=== PATIENT | male | born 1960 | race Caucasian/White ===

== ENCOUNTER 2018-05-23 07:52 | Emergency (ER) | payer MEDICARE ==
[2018-05-23 07:59] VITALS: BP 128/97
--- NOTE | 2018-05-23 08:26 | ED ---
Back Pain - HPI Summary HPI Summary: Patient is a 57-year-old male with a PMH of [place] 10 years ago now on plavix presenting to the with 2 week complaint of right sided mid back pain radiating to the right lateral chest wall. Denies any known injuries or falls. He states he feels that it's a rib pain. Denies any SOB or chest pain. Denies any shortness of breath. Continues to eat and drink okay. Denies any other back pain or urinary symptoms. Has been taking muscle relaxers without much relief. Has not been using ibuprofen or Tylenol. Symptoms are worse with direct pressure and alleviated with nothing. - History of Current Complaint Chief Complaint: EDBackInjuryPain Stated Complaint: POSSIBLE RIB INJURY Time Seen by Provider: 05/23/18 08:12 Hx Obtained From: Patient Onset/Duration: Sudden Onset Onset/Duration: Started Weeks Ago Timing: Constant Back Pain Location: Is Discrete @ - right sided upper back radiating to the right ribs Severity Initially: Moderate Severity Currently: Moderate Pain Intensity: 6 Pain Scale Used: 0-10 Numeric Character: Aching Aggravating Symptom(s): Movement, Lifting, Other - palpation Alleviating Symptom(s): Rest Associated Signs And Symptoms: Negative: Swelling, Redness, Bruising, Weakness, Numbness - Risk Factors AAA Risk Factors: Negative TAD Risk Factors: Negative Cauda Equina Risk Factors: Negative Epidural Abscess Risk Factors: Negative - Allergies/Home Medications Allergies/Adverse Reactions: Allergies Allergy/AdvReac Type Severity Reaction Status Date / Time No Known Allergies Allergy Verified 05/27/16 13:01 PMH/Surg Hx/FS Hx/Imm Hx Previously Healthy: Yes Respiratory History: Reports: Other Respiratory Problems/Disorders - bronchitis Neurological History: Reports: Other Neuro Impairments/Disorders - MR - Immunization History Hx Pertussis Vaccination: No Immunizations Up to Date: Unable to Obtain/Confirm Infectious Disease History: No Infectious Disease History: Denies: Traveled Outside the [place] in Last 30 Days - Family History Known Family History: Positive: Diabetes - Social History Occupation: Employed Part-time Lives: Alone Alcohol Use: Daily Alcohol Amount: 2-3 beers per day Hx Substance Use: No Substance Use Type: Reports: None Hx Tobacco Use: No Smoking Status (MU): Never Smoked Tobacco Review of Systems Constitutional: Negative Negative: Fever, Chills, Fatigue Negative: Palpitations, Chest Pain Negative: Shortness Of Breath, Cough Genitourinary: Negative Positive: no symptoms reported, see HPI Positive: Arthralgia - right sided back pain radiating to the R ribs Skin: Negative, Other - no rash or vesicles are visualized Neurological: Negative All Other Systems Reviewed And Are Negative: Yes Physical Exam Triage Information Reviewed: Yes Vital Signs On Initial Exam: Initial Vitals Temp Pulse Resp BP Pulse Ox 98.2 F 87 18 128/97 96 05/23/18 07:56 05/23/18 07:56 05/23/18 07:56 05/23/18 07:56 05/23/18 07:56 Vital Signs Reviewed: Yes Appearance: Positive: Well-Appearing, Well-Nourished Skin: Positive: Warm, Skin Color Reflects Adequate Perfusion, Other - no vesicles or rash noted Head/Face: Positive: Normal Head/Face Inspection Eyes: Positive: EOMI, DILAN, Conjunctiva Clear Neck: Positive: Supple, No Lymphadenopathy Respiratory/Lung Sounds: Positive: Clear to Auscultation, Breath Sounds Present Cardiovascular: Positive: RRR, Pulses are Symmetrical in both Upper and Lower Extremities Musculoskeletal: Positive: Pain @ - right mid back pain radiating to the R lateral chest wall - reproducible Neurological: Positive: Sensory/Motor Intact, Alert, Oriented to Person Place, Time, Speech Normal Psychiatric: Positive: Normal, Affect/Mood Appropriate AVPU Assessment: Alert Diagnostics - Vital Signs Vital Signs Temp Pulse Resp BP Pulse Ox 05/23/18 07:56 98.2 F 87 18 128/97 96 - Laboratory Lab Statement: Any lab studies that have been ordered have been reviewed, and results considered in the medical decision making process. Back Pain Course/Dx - Course Course Of Treatment: Patient is evaluated for right-sided back pain radiating to the right lateral chest wall over rib cage. X-ray obtained of the right rib series as well as PA lateral views of the chest. This does not appear to be cardiac as patient denies any SOB, chest pain, pain is reproducible on physical examination and symptoms present 2 weeks. Linear pain from back to chest area over dermatome pattern. Possible herpetic zoster virus with delayed vesicular reaction. Patient is cautioned regarding vesicular lesions and will need to be re-seen if these develop. No vesicles seen, Lidoderm patch applied. He will follow up with his physician if symptoms fail to improve. - Diagnoses Differential Diagnosis/HQI/PQRI: Positive: Strain, Sprain Provider Diagnoses: Rib pain on right side Discharge - Sign-Out/Discharge Documenting (check all that apply): Discharge/Admit/Transfer - Discharge Plan Condition: Stable Disposition: HOME Patient Education Materials: Muscle Strain (ED) Referrals: Taylor Cabrera MS [Nurse Practitioner] - Additional Instructions: Advil 600mg three times daily Moist heat to the area If you develop worsening pain or pain continues - please see your PCP If you develop vesicles/rash in the area - please go see your PCP or come to the ED - Billing Disposition and Condition Condition: STABLE Disposition: Home
--- NOTE | 2018-05-23 08:44 | RAD ---
INDICATION: Right-sided chest pain COMPARISON: None TECHNIQUE: Multiple views of the ribs were obtained. FINDINGS: Bones: There is no evidence of acute rib fracture. LUNGS: The lungs are clear. There is no pneumothorax. Pleural spaces: There is no evidence of hemothorax. Other: None IMPRESSION: NO ACUTE RIB FRACTURE. LUNGS CLEAR.
[2018-05-23] MEDS ORDERED: Lidocaine PATCH 5%* 1 PATCH TRANSDERM SCH (09:00)
[2018-05-23] MEDS ORDERED: Lidocaine Patch REMOVE* 1 NOTE MISC SCH (21:00)
== END 2018-05-23 09:05 | disposition home or self-care (01) ==
LOC: ED 07:52
DX: R07.81 Pleurodynia (principal); I25.2 Old myocardial infarction; Z79.02 Long term (current) use of antithrombotics/antiplatelets; F79 Unspecified intellectual disabilities
CPT/HCPCS: 99282; A9270-GY

== ENCOUNTER 2019-01-04 11:14 | Emergency (ER) | payer MEDICARE ==
[2019-01-04] MEDS ORDERED: oxyCODONE/Acetamin 5/325 MG* TAB PO ONE (11:47)
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
[2019-01-04 12:58] VITALS: BP 125/79
== END 2019-01-04 12:57 | disposition home or self-care (01) ==
LOC: ED 11:14
DX: M25.562 Pain in left knee (principal); M25.462 Effusion, left knee; E11.9 Type 2 diabetes mellitus without complications; I10 Essential (primary) hypertension; K21.9 Gastro-esophageal reflux disease without esophagitis; F41.9 Anxiety disorder, unspecified
CPT/HCPCS: 99282; A9270-GY

== ENCOUNTER 2019-03-21 08:53 | Emergency (ER) | payer MEDICARE ==
[2019-03-21] MEDS ORDERED: Ibuprofen TAB* 600 MG PO ONE (09:15)
[2019-03-21] MEDS ORDERED: Acetaminophen TAB* 325 MG PO ONE (09:16)
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
[2019-03-21 10:43] VITALS: BP 144/92
== END 2019-03-21 10:41 | disposition home or self-care (01) ==
LOC: ED 08:53
DX: S22.32XA Fracture of one rib, left side, initial encounter for closed fracture (principal); W01.190A Fall on same level from slipping, tripping and stumbling with subsequent striking against furniture, initial encounter; I10 Essential (primary) hypertension; E11.9 Type 2 diabetes mellitus without complications; K21.9 Gastro-esophageal reflux disease without esophagitis; F41.9 Anxiety disorder, unspecified; Z79.84 Long term (current) use of oral hypoglycemic drugs; Z79.899 Other long term (current) drug therapy
CPT/HCPCS: 99282; A9270-GY

== ENCOUNTER 2020-01-05 11:22 | Emergency (ER) | payer MEDICARE ==
[2020-01-05] MEDS ORDERED: NS 0.9% 1000 ML** 1,000 ML IV ONE (11:47)
[2020-01-05] MEDS ORDERED: methylPREDNISolone 125 MG* 2 ML VIAL IV ONE (11:47)
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
[2020-01-05 12:03] LABS: ABS Eosinophils 0.1 10^3/ul (0-0.6); ABS Lymphocytes 0.7 10^3/ul (1.0-4.8); ABS Monocytes 0.9 10^3/ul (0-0.8); ABS Neutrophils 6.4 10^3/ul (1.5-7.7); Eosinophil % 0.8 %; Hematocrit 32 % (42-52); Hemoglobin 10.9 g/dL (14.0-18.0); Lymphocyte % 9.1 %; Mean Corpuscular HGB Conc 34 g/dL (31-36); Mean Corpuscular Hemoglobin 27 pg (27-31); Mean Corpuscular Volume 79 fL (80-94); Mean Platelet Volume 7.9 fL (7.4-10.4); Platelet Count 134 10^3/uL (150-450); Red Cell Distribution Width 15 % (10-15); White Blood Count 8.1 10^3/uL (3.5-10.8)
[2020-01-05 12:20] LABS: Albumin 3.5 g/dL (3.2-5.2); Albumin/Globulin Ratio 1.4 (1-3); BUN/Creatinine Ratio 9.2 (8-20); C Reactive Protein 41.27 mg/L (<8.01); Calcium 8.4 mg/dL (8.6-10.3); EGFR African American 126.6 (>60); EGFR Non-African American 104.6 (>60); Globulin 2.5 g/dL (2-4); Potassium 3.8 mmol/L (3.5-5.0); Total Bilirubin 0.5 mg/dL (0.2-1.0); Uric Acid 3.7 mg/dL (4.4-7.6)
[2020-01-05 13:27] LABS: Erythrocyte Sed Rate 30 mm/Hr (0-19)
[2020-01-05 14:12] VITALS: BP 149/90
== END 2020-01-05 14:09 | disposition home or self-care (01) ==
LOC: ED 11:22
DX: M10.9 Gout, unspecified (principal); R21 Rash and other nonspecific skin eruption; E11.9 Type 2 diabetes mellitus without complications; Z79.84 Long term (current) use of oral hypoglycemic drugs; I10 Essential (primary) hypertension; I25.2 Old myocardial infarction; K21.9 Gastro-esophageal reflux disease without esophagitis; F41.9 Anxiety disorder, unspecified; R51 Headache
CPT/HCPCS: 36415; 80053; 84550; 85025; 85652; 86140; 96361; 96374; 99283; J2930

== ENCOUNTER 2023-04-25 09:09 | Observation (INO) ==
[2023-04-25 09:31] LABS: Activated Partial Thrombo Time 29.7 seconds (26.0-38.0); INR 1.06 (0.88-1.18)
[2023-04-25 09:43] LABS: Albumin 4.3 g/dL (3.2-5.2); Calcium 9.1 mg/dL (8.6-10.3); Creatinine, Serum 0.76 mg/dL (0.67-1.17); Globulin 2.2 g/dL (2-4); HDL Cholesterol 30.1 mg/dL; Potassium 3.7 mmol/L (3.5-5.0); Total Bilirubin 0.8 mg/dL (0.2-1.0); Total Protein 6.5 g/dL (6.4-8.9)
[2023-04-25 09:51] LABS: Urine Appearance Clear; Urine Bilirubin Negative (Negative); Urine Blood Negative (Negative); Urine Color Straw; Urine Glucose 2+(150 mg/dL) (Negative); Urine Ketones Trace (Negative); Urine Nitrite Negative (Negative); Urine Protein Negative (Negative); Urine Specific Gravity 1.031 (1.002-1.030); Urine Urobilinogen Negative (Negative)
[2023-04-25 10:01] LABS: ABS Basophils 0.1 10^3/uL (0.0-0.1); ABS Eosinophils 0.2 10^3/uL (0.0-0.5); ABS Lymphocytes 1.3 10^3/uL (1.0-4.8); ABS Monocytes 0.7 10^3/uL (0.0-1.1); ABS Nucleated RBC 0.01 10^3/ul; Eosinophil % 2.1 %; Hematocrit 45.3 % (38-53); Hemoglobin 16.2 g/dL (13.2-16.3); Mean Corpuscular Hemoglobin 32.8 pg (27-33); Mean Corpuscular Hgb Conc 35.7 g/dL (31-36); Mean Corpuscular Volume 91.9 fL (80-97); Mean Platelet Volume 7.5 fL (7.5-11.2); Nucleated Red Blood Cells % 0.2 /100 WBC (0.0-0.4); Platelet Count 152 10^3/uL (150-450); Red Blood Count 4.93 10^6/uL (4.06-5.63); Red Cell Distribution Width 13.3 % (12-17); White Blood Count 7.3 10^3/uL (3.6-10.2)
[2023-04-25] MEDS ORDERED: Aspirin EC 325 mg TAB.EC PO ONE (10:06)
[2023-04-25] MEDS ORDERED: Ondansetron 4 mg VIAL 2 MG/ML 2 ml VIAL IV PRN (10:17)
[2023-04-25] MEDS ORDERED: Lorazepam PYXIS KEY PRN (10:20)
[2023-04-25] MEDS ORDERED: MELATONIN PYRIDOXINE HCL PO PRN (10:45)
[2023-04-25] MEDS ORDERED: Psyllium PAK PO PRN (10:45)
[2023-04-25] MEDS ORDERED: CMCS: LoraTADine 10 mg TAB (NF) PO PRN (10:45)
[2023-04-25] MEDS ORDERED: LORazepam 2 mg VIAL 1 ml IV PUSH SCH (11:00)
[2023-04-25 12:39] LABS: TSH Ultra Thyroid Stim Horm 3.7 mcIU/mL (0.34-5.60)
[2023-04-25] MEDS ORDERED: Thiamine 100 MG/ML 2 ml VIAL 500 MG in NS 0.9% 250 ml 250 ML IV SCH (14:00)
[2023-04-25] MEDS ORDERED: Dextrose 50% Syringe 50 ml 25 GM/50 ML SYRINGE IV PUSH PRN (14:27)
[2023-04-25] MEDS: Enoxaparin 40 MG/0.4 ML SYR SUBCUT SCH (15:20)
[2023-04-25] MEDS: Thiamine 100 MG/ML 2 ml VIAL 250 MG in NS 0.9% 100 ml BAG 100 ML IV SCH (15:20)
[2023-04-25] MEDS: Calcium Citrate 200 mg TAB PO SCH (21:15)
[2023-04-26 07:05] LABS: Creatinine, Serum 0.66 mg/dL (0.67-1.17); Magnesium 1.5 mg/dL (1.9-2.7); Potassium 3.4 mmol/L (3.5-5.0); eGFR CKD-EPI 105.4 (>60)
[2023-04-26 07:47] LABS: ABS Basophils 0.1 10^3/uL (0.0-0.1); ABS Eosinophils 0.2 10^3/uL (0.0-0.5); ABS Lymphocytes 1.5 10^3/uL (1.0-4.8); ABS Monocytes 0.7 10^3/uL (0.0-1.1); ABS Neutrophils 4.7 10^3/uL (1.5-7.6); Eosinophil % 2.4 %; Hematocrit 40.9 % (38-53); Hemoglobin 14.9 g/dL (13.2-16.3); Lymphocyte % 20.5 %; Mean Corpuscular Hemoglobin 33.1 pg (27-33); Mean Corpuscular Hgb Conc 36.3 g/dL (31-36); Mean Corpuscular Volume 91.1 fL (80-97); Mean Platelet Volume 7.5 fL (7.5-11.2); Platelet Count 142 10^3/uL (150-450); Red Blood Count 4.49 10^6/uL (4.06-5.63); Red Cell Distribution Width 13.4 % (12-17); White Blood Count 6.6 10^3/uL (3.6-10.2)
[2023-04-26] MEDS: Calcium Citrate 200 mg TAB PO SCH (08:19)
[2023-04-26] MEDS ORDERED: Aspirin EC 81 mg TAB.EC (enteric coated) PO SCH (09:00)
[2023-04-26] MEDS ORDERED: Cholecalciferol (VIT D3) 1,000 unit TAB PO SCH (09:00)
[2023-04-26] MEDS ORDERED: CMCS: Lovastatin 10 mg TAB (NF) PO SCH (09:00)
[2023-04-26] MEDS ORDERED: ALOGLIPTIN 6.25 MG PO SCH (09:00)
[2023-04-26] MEDS ORDERED: Magnesium Sulfate 2 gm BAG 2 GM/50 ML BAG IVPB ONE (09:07)
[2023-04-26] MEDS ORDERED: Potassium Chlor 20 meq TAB.ER PO ONE (09:08)
[2023-04-26] MEDS: Enoxaparin 40 MG/0.4 ML SYR SUBCUT SCH (10:08)
[2023-04-26 13:21] VITALS: BP 176/99
[2023-04-26] MEDS: Thiamine 100 MG/ML 2 ml VIAL 250 MG in NS 0.9% 100 ml BAG 100 ML IV SCH (13:45)
== END 2023-04-26 14:50 | disposition home or self-care (01) ==
LOC: EDHOLD 09:09 → ED 09:09 → SUATTDRO 10:17 → EDHOLD 12:42 → MEDTELE 12:56
PROVIDERS: ADMIT Internal Medicine; ATTEND Internal Medicine